=== PATIENT | male | born 1945 | race Caucasian/White ===

== ENCOUNTER 2016-12-21 09:52 | Inpatient (IN) | payer MEDICARE, BC ==
[~2016-12-21] VITALS: Ht 167.6 cm; Wt 104.7 kg
[~2016-12-21 09:52] MED LIST: AMLODIPINE5 MG PO; BYSTOLIC10 MG PO; COZAAR100 MG PO; HCTZ; LOW DOSE ASPIRI81 MG PO; SEE INSTRUCTIONS; SIMVASTATIN20 MG PO; VITAMIN C500 MG PO; VITAMIN D31000 IU PO; ZOCOR; [UNRECOGNIZED DRUG - OTHER]
[2017-02-19] VITALS (12 sets, daily range): BP systolic 11–1223; BP diastolic 37–69; PULSE 55–68; TEMP 97–98.5
[2017-02-19] MEDS ORDERED: NORVASC 5MG5 MG/TAB PO (09:16)
[2017-02-19] MEDS ORDERED: COREG 25MG25 MG/TAB PO (09:16)
[2017-02-19] MEDS ORDERED: ZOCOR 20MG20 MG PO (09:17)
[2017-02-19] MEDS ORDERED: COZAAR100 MG PO (09:17)
[2017-02-19] MEDS ORDERED: HCTZ 25MG TAB25 MG PO (09:17)
[2017-02-19] MEDS ORDERED: VITAMIND3 5000 PO (09:18)
[2017-02-19] MEDS ORDERED: ALDACTONE 25MG25 M1 PO (09:18)
[2017-02-19] MEDS ORDERED: FOLIC ACID 40400 MCG PO (09:19)
[2017-02-19] MEDS ORDERED: VITAMIN C500 MG PO (09:19)
[2017-02-19] MEDS ORDERED: FERROUS SU325 MG/TAB PO (09:20)
[2017-02-20 04:03] VITALS: BP 92/55; PULSE 66; TEMP 98.2
[2017-02-20 06:23] LABS: HEMATOCRIT 34.9 % (42.0-52.0); HEMOGLOBIN 11.4 g/dl (13.5-18.0)
[2017-02-20 07:12] VITALS: BP 109/56; PULSE 57; TEMP 97.5
[2017-02-20 11:17] VITALS: BP 103/70; PULSE 64; TEMP 98.1
[2017-02-20 16:22] VITALS: BP 123/77; PULSE 71; TEMP 98.1
[2017-02-20 20:10] VITALS: BP 127/58; PULSE 72; TEMP 98.2
[2017-02-21 00:36] VITALS: BP 106/53; PULSE 64; TEMP 98
[2017-02-21 05:42] VITALS: BP 99/49; PULSE 41; TEMP 97.7
[2017-02-21 08:33] VITALS: BP 111/56; PULSE 66; TEMP 98.1
[2017-02-21] MEDS ORDERED: ROXICODONE 55 MG/TAB PO (11:05)
[2017-02-21] MEDS ORDERED: NORCO 325 MG-7.1 TAB PO (11:05)
[2017-02-21] MEDS ORDERED: ASPIRIN 32325 MG/TAB PO (11:06)
[2017-02-21 12:29] VITALS: BP 105/54; PULSE 69; TEMP 98.2
== END 2017-02-21 14:20 | disposition home or self-care (01) | DRG 470 ==
LOC: JCC 02-19 07:59
PROVIDERS: Orthopaedic Surgery
PROC: 0SR90JA Replacement of Right Hip Joint with Synthetic Substitute, Uncemented, Open Approach (ICD-10-PCS; principal; 2017-02-19 13:20)
DX: M16.11 Unilateral primary osteoarthritis, right hip (principal); E66.9 Obesity, unspecified; I10 Essential (primary) hypertension; Z68.38 Body mass index [BMI] 38.0-38.9, adult; Z87.891 Personal history of nicotine dependence
CPT/HCPCS: A4315; A9284; C1713; C1776; J0690; J2250; J2270; J2704; J7120

== ENCOUNTER → 2017-02-12 | Outpatient (CLI) | payer MEDICARE, BC ==
[~2017-02-12] MED LIST changes: +ALDACTONE 25MG25 M1 PO; +ASPIRIN 32325 MG/TAB PO; +COREG 25MG25 MG/TAB PO; +FERROUS SU325 MG/TAB PO; +FOLIC ACID 40400 MCG PO; +HCTZ 25MG TAB25 MG PO; +NORCO 325 MG-7.1 TAB PO; +NORVASC 5MG5 MG/TAB PO; +ROXICODONE 55 MG/TAB PO; +VITAMIND3 5000 PO; +ZOCOR 20MG20 MG PO
[2017-02-12 17:46] LABS: HIV 1/2 Antibodies Non-Reactive; HIV-1p24 Antigen Non-Reactive
== END ==
LOC: COL.LAB 16:21
PROVIDERS: Orthopaedic Surgery
DX: Z01.812 Encounter for preprocedural laboratory examination (principal); M25.851 Other specified joint disorders, right hip